=== PATIENT | male | born 1945 | race Caucasian/White ===

== ENCOUNTER 2018-06-06 22:04 | Inpatient (IN) | payer BC, MEDICARE ==
--- NOTE | 2018-06-06 22:39 | ERNOTE ---
GI Bleeding/Rectal Pain ER Date of Service: 06/06/18 Presenting Symptoms: rectal bleeding Time Seen by Provider: 06/06/18 22:24 Source: patient Immunizations: IMMUNIZATION HX Immunizations Up to Date Yes History of Influenza Vaccine Yes Hx Pneumococcal Vaccination Yes Allergies/Adverse Reactions: Allergies No Known Allergies Allergy (Unverified 05/27/18 12:56) Home Medications: HOME MEDICATIONS Enalapril Maleate [Vasotec] 20 mg PO DAILY 02/10/15 [Last Taken Unknown] Lovastatin 10 mg PO HS 02/10/15 [Last Taken Unknown] Metoprolol Tartrate [Lopressor] 25 mg PO BID 02/10/15 [Last Taken Unknown] Warfarin Sodium [Coumadin] 8 mg PO TH 02/10/15 [Last Taken Unknown] Warfarin Sodium [Coumadin] 10 mg PO SUMOTUWEFRSA 02/02/16 [Last Taken Unknown] Gabapentin 300 mg PO HS 02/13/17 [Last Taken Unknown] Narrative: patient c/o several episodes of bloody stool starting this afternnon, had episode of feeling a bit light headed ,pt on warfarin,says it was for an old stroke Date (Duration): 06/06/18 Time (Timing): 22:35 Timing: constant Quality/Severity: Present: other - none Date of Last Bowel Movement: 06/06/18 Nausea/Vomiting: Present: blood, other - melanic stool burgandy color Abdominal Pain: Present: none Rectal Bleeding: Present: other - burgandy color melanic Associated Symptoms: Reports: black stools Prior Treament: Reports: recently seen Review of Systems - Review of Systems Constitutional: Present: no symptoms reported EYE: Present: no symptoms reported ENT: Present: no symptoms reported Respiratory: Present: no symptoms reported Cardiology: Present: no symptoms reported Gastrointestinal/Abdominal: Present: no symptoms reported Genitourinary: Present: no symptoms reported Musculoskeletal: Present: no symptoms reported Skin: Present: no symptoms reported Neurological: Present: weakness - right leg Endocrine: Present: no symptoms reported Hematologic/Lymphatic: Present: no symptoms reported All Other Systems: All systems neg except as marked Medical History (Last Updated 06/06/18 @ 22:16 by Neva Ruvalcaba RN) History of stroke Gastroesophageal reflux Hyperlipidemia Hypertension Surgical History: Surgical History (Last Reviewed 05/27/18 @ 13:09 by Moriah Karimi) S/P skin biopsy Onset Date: ~07/2010 Dr Rutherford- right check History of colonoscopy Onset Date: ~08/21/11 ' [facility]. Cindi- normal, recheck 10 yrs. Family History: Family History (Last Reviewed 06/06/18 @ 22:16 by Neva Ruvalcaba RN) Mother Diabetes Father Alzheimers disease Brother Myocardial infarction, Onset Age: 52 Social History: Preferred Language Beninese Do you have any jew or No cultural preference? Smoking Status Never smoker Have you smoked in the past 12 No months Do you dip or chew tobacco No Alcohol Use occasionally Drug Use none (Last Reviewed 05/27/18 @ 13:09 by Moriah Karimi) No Social History Section defined Physical Exam - Physical Exam General Appearance: Present: wd/wn, alert, no apparent distress Head Exam: Present: normal inspection, no evidence of injury Eye Exam: Normal inspection: bilateral, PERRL: bilateral, EOMI: bilateral Ears, Nose, Throat: Present: normal ENT inspection Neck: Present: normal inspection Respiratory: Present: no respiratory distress Cardiovascular/Chest: Present: irregularly irregular Gastrointestinal/Abdominal: Present: nontender, soft Rectal Exam: Present: nontender, normal rectal tone, black stool, blood-streaked stool Male Genitals Exam: Present: normal genitalia Back Exam: Present: normal inspection Extremity Exam: Present: normal inspection Neurological Exam: Present: alert, oriented, normal mood/affect, no motor/sensory deficits Skin Exam: Present: normal color Progress - Results and Orders Patient's Lab Results:: I have reviewed the patient's lab results. - Vital Signs Patient's Vital Signs:: I have reviewed the patient's vital signs. Vital Signs: Vital Signs 06/06/18 22:10 Temperature 36.1 C Pulse Rate 97 Respiratory Rate 18 Blood Pressure 116/52 O2 Sat by Pulse Oximetry 97 - EKG EKG: atrial fibrillation, other - RVR EKG read: Interp. by me EKG Comments: [id number] not new - Progress/Reassessment Chief Complaint: GI Bleed Progress:: Unchanged Progress Note-Subjective: 06/07/18 01:28 hr a.fib 106 no further bm Plan - Plan Plan: diltiazem drip ,hold warfarin till further notice Departure Clinical Impression: Rectal bleeding, Atrial fibrillation with rapid ventricular response - Departure Disposition: Short Term Hospital Inpatient Condition: Fair
[2018-06-06 22:46] LABS: Hematocrit 39.6 % (42.0-52.0); Hemoglobin 12.6 gm/dL (13.5-18.0); Mean Cell Volume 103.1 fl (78-100); Mean Corpuscular Hemoglobin 32.8 pg (27-31); Mean Corpuscular Hgb Conc 31.8 g/dl (32-36); Mean Platelet Volume 10.3 fl (8-11.3); Neutrophil # 8.7 K/mm3 (1.3-6.0); Neutrophil % 76.9 % (42-75.0); Platelet Count 320 K/mm3 (150-450); Red Blood Count 3.84 M/mm3 (4.7-6.0); Red Cell Distribution Width 12.8 % (11.5-14.0); White Blood Count 11.3 K/mm3 (4.0-10.5)
[2018-06-06] MEDS ORDERED: DILTIAZEM HCL 5 MG/ML VIAL IV ONE (22:46)
[2018-06-06] MEDS ORDERED: DILTIAZEM HCL 125 MG in DEXTROSE 5 % IN WATER 100 ML IV PRN ×2 (22:47)
[2018-06-06 22:58] LABS: Prothrombin Time (Patient) 51.9 Seconds (9.0-11.0)
[2018-06-06 23:15] LABS: Partial Thrombolplastin Time 44.6 Seconds (24-32)
[2018-06-06 23:16] LABS: INR 5.11 INR (0.90-1.10)
[2018-06-06 23:21] LABS: ALT 9 U/L (19-67); AST 20 U/L (0-48); Albumin * 2.5 gm/dl (3.4-5.0); Alkaline Phosphatase * 70 U/L (50-170); Anion Gap 9.8 mmol/L (6.8-13.8); BNP * 1142 pg/mL (5-350); BUN/Creatinine Ratio 47.6 (9.0-21.6); Bilirubin, Total 0.3 mg/dL (0.0-1.1); Blood Urea Nitrogen 59 mg/dL (6-23); Ca. Corrected For Albumin 9.2 mg/dL (8.4-10.2); Calcium * 8.3 mg/dL (7.9-10.9); Carbon Dioxide 28.8 mmol/L (24-32.6); Chloride 106 mmol/L (97-106); Glucose * 171 mg/dL (70-110); Potassium 4.6 mmol/L (3.4-4.6); Sodium 140 mmol/L (132-142); Total Protein 6.5 gm/dL (6.2-8.2)
[2018-06-06 23:23] LABS: Troponin I Less than 0.017 ng/mL (0.00-0.10)
[2018-06-07 01:29] LABS: Urine Bilirubin Negative (NEGATIVE); Urine Blood Negative /ul (NEGATIVE); Urine Ketone Negative (NEGATIVE); Urine Nitrite Negative (NEGATIVE); Urine Protein Negative (NEGATIVE); Urine Urobilinogen Normal (NORMAL); Urine pH 5.5 pH (5.0-7.0)
[2018-06-07 01:40] LABS: Urine Appearance Clear (CLEAR); Urine Bacteria None Seen; Urine Color Yellow; Urine Hyaline Cast TRACE /LPF; Urine RBC None Seen /hpf (0-5); Urine WBC None Seen /hpf (0-5)
[2018-06-07] MEDS ORDERED: CALCIUM CARBONATE 500 MG TAB.CHEW PO PRN (03:42)
[2018-06-07 06:19] LABS: Hematocrit 34.8 % (42.0-52.0); Hemoglobin 11.3 gm/dL (13.5-18.0); Mean Cell Volume 100.9 fl (78-100); Mean Corpuscular Hemoglobin 32.8 pg (27-31); Mean Corpuscular Hgb Conc 32.5 g/dl (32-36); Mean Platelet Volume 10.4 fl (8-11.3); Neutrophil % 73.5 % (42-75.0); Platelet Count 293 K/mm3 (150-450); Red Blood Count 3.45 M/mm3 (4.7-6.0); Red Cell Distribution Width 12.9 % (11.5-14.0); White Blood Count 10.9 K/mm3 (4.0-10.5)
--- NOTE | 2018-06-07 06:54 | HP ---
Chief Complaint - Chief Complaint Date of Service: 06/07/18 Time of Service: 06:54 Chief Complaint: rectal bleeding History of Present Illness: Patient with PMHx of afib on coumadin, HTN, previous CVA presented to the ED after having several bloody bowel movements. He had gone to his granddaughter's birthday libertarian, ate pizza, cake, and ice cream, and came home and started having loose bloody BMs. Had some mild dizziness. He has not had coumadin dose changes lately, and is usually in range, however he did miss his appointment last week. On arrival to the ED, he was in afib with RVR, and was given 20 mg IV cardizem with improvement in his HR. Was on 5 mg/hr cardizem drip for a few hours, and the drip was stopped this morning. Chart review shows he was seen in the [facility] 05/27 for muscular abdominal pain. He took a couple of ibuprofen about every other day since then, and denies using ibuprofen prior to that. His last colonoscopy looks to have been in 2011. He also has been having some heartburn, but is not prescribed a medication for it. Medical History (Last Updated 06/07/18 @ 04:35 by Dariana Manzo RN) Diabetes History of stroke Gastroesophageal reflux Hyperlipidemia Hypertension Surgical History: Surgical History (Last Reviewed 06/07/18 @ 04:35 by Dariana Manzo RN) S/P skin biopsy Onset Date: ~07/2010 Dr Rutherford- right check History of colonoscopy Onset Date: ~08/21/11 '04 [facility]. 13 Cindi- normal, recheck 10 yrs. Family History: Family History (Last Reviewed 06/07/18 @ 04:35 by Dariana Manzo RN) Mother Diabetes Father Alzheimers disease Brother Myocardial infarction, Onset Age: 52 Social History: Patient Lives/Resources Home Utilized Occupation retired Preferred Language Occitan Do you have any mandaen or Yes: [employer] cultural preference? Smoking Status Former smoker Have you smoked in the past 12 No months Do you dip or chew tobacco No Alcohol Use occasionally Drug Use none (Last Reviewed 05/27/18 @ 13:09 by Moriah Karimi) No Social History Section defined Review Of Systems (GEN) - Review of Systems Generalized/Overall Review: Absent: Weakness, Fever Respiratory: Present: Cough - "a little". Absent: Shortness of Breath Cardiac: Absent: Chest Pain, Edema Abdominal: Present: Abdominal Pain - epigastric, Bright blood from rectum. Absent: Vomiting Immunizations: IMMUNIZATION HX Immunizations Up to Date Yes History of Influenza Vaccine Yes Hx Pneumococcal Vaccination Yes Allergies/Adverse Reactions: Allergies Allergy/AdvReac Type Severity Reaction Status Date / Time No Known Allergies Allergy Verified 06/07/18 04:35 Home Medications: HOME MEDICATIONS Enalapril Maleate [Vasotec] 20 mg PO DAILY 02/10/15 [Last Taken 06/06/18 07:30] Lovastatin 10 mg PO HS 02/10/15 [Last Taken 06/06/18 07:30] Metoprolol Tartrate [Lopressor] 25 mg PO BID 02/10/15 [Last Taken 06/06/18 07:30] Warfarin Sodium [Coumadin] 8 mg PO TH 02/10/15 [Last Taken 06/04/18 07:30] Warfarin Sodium [Coumadin] 10 mg PO SUMOTUWEFRSA 02/02/16 [Last Taken 06/06/18 07:30] Gabapentin 300 mg PO HS 02/13/17 [Last Taken 06/06/18 07:30] Exam - Exam Vital Signs: Vital Signs - Last Taken Temp 37 C 06/07/18 06:00 Pulse 87 06/07/18 06:00 Resp 18 06/07/18 06:00 BP 109/71 06/07/18 06:00 Pulse Ox 97 06/07/18 06:00 Constitutional: Present: Alert, Oriented x3, Cooperative, No distress ENT Exam: Present: dry mucous membranes - mildly dry Respiratory: Present: normal breath sounds, no respiratory distress. Absent: No wheezing Cardiovascular/Chest: Present: irregularly irregular - HR 80's Abdomen: Present: Normal bowel sounds, soft, nontender /Rectal: Present: hemorrhoids - mild, Sphincter tone normal Extremity: Absent: lower extremity edema Neurologic: Present: normal mood/affect Eye contact: Present: cooperative, good eye contact Diagnostic Studies: Abnormal Lab Results 06/06/18 06/06/18 06/06/18 Range/Units 22:36 22:40 22:40 WBC 11.3 H (4.0-10.5) K/mm3 RBC 3.84 L (4.7-6.0) M/mm3 Hgb 12.6 L (13.5-18.0) gm/dL Hct 39.6 L (42.0-52.0) % MCV 103.1 H (78-100) fl MCH 32.8 H (27-31) pg MCHC 31.8 L (32-36) g/dl Immature Gran % (Auto) 1.40 H (0.001-0.429) % Immature Gran # (Auto) 0.16 H (0.000-0.0310) K/mm3 Neutrophils % 76.9 H (42-75.0) % Lymphocytes % 14.3 L (20-51) % Monocytes % (0.0-9) % Neutrophils # 8.7 H (1.3-6.0) K/mm3 Monocytes # (0.0-1.0) k/mm3 PT 51.9 H (9.0-11.0) Seconds INR (Anticoag Therapy) 5.11 H* (0.90-1.10) INR PTT (Phil) 44.6 H (24-32) Seconds BUN (6-23) mg/dL BUN/Creatinine Ratio (9.0-21.6) Random Glucose (70-110) mg/dL ALT (19-67) U/L B-Natriuretic Peptide (5-350) pg/mL Albumin (3.4-5.0) gm/dl Stool Occult Blood Positive H 06/06/18 06/07/18 Range/Units 22:40 06:15 WBC 10.9 H (4.0-10.5) K/mm3 RBC 3.45 L (4.7-6.0) M/mm3 Hgb 11.3 L (13.5-18.0) gm/dL Hct 34.8 L (42.0-52.0) % MCV 100.9 H (78-100) fl MCH 32.8 H (27-31) pg MCHC (32-36) g/dl Immature Gran % (Auto) 0.70 H (0.001-0.429) % Immature Gran # (Auto) 0.08 H (0.000-0.0310) K/mm3 Neutrophils % (42-75.0) % Lymphocytes % 15.4 L (20-51) % Monocytes % 9.8 H (0.0-9) % Neutrophils # 8.0 H (1.3-6.0) K/mm3 Monocytes # 1.1 H (0.0-1.0) k/mm3 PT (9.0-11.0) Seconds INR (Anticoag Therapy) (0.90-1.10) INR PTT (Phil) (24-32) Seconds BUN 59 H (6-23) mg/dL BUN/Creatinine Ratio 47.6 H (9.0-21.6) Random Glucose 171 H (70-110) mg/dL ALT 9 L (19-67) U/L B-Natriuretic Peptide 1142 H (5-350) pg/mL Albumin 2.5 L (3.4-5.0) gm/dl Stool Occult Blood Laboratory Results WBC 10.9 K/mm3 (4.0-10.5) H 06/07/18 06:15 RBC 3.45 M/mm3 (4.7-6.0) L 06/07/18 06:15 Hgb 11.3 gm/dL (13.5-18.0) L 06/07/18 06:15 Hct 34.8 % (42.0-52.0) L 06/07/18 06:15 MCV 100.9 fl (78-100) H 06/07/18 06:15 MCH 32.8 pg (27-31) H 06/07/18 06:15 MCHC 32.5 g/dl (32-36) 06/07/18 06:15 RDW 12.9 % (11.5-14.0) 06/07/18 06:15 Plt Count 293 K/mm3 (150-450) 06/07/18 06:15 MPV 10.4 fl (8-11.3) 06/07/18 06:15 Immature Gran % (Auto) 0.70 % (0.001-0.429) H 06/07/18 06:15 Immature Gran # (Auto) 0.08 K/mm3 (0.000-0.0310) H 06/07/18 06:15 Neutrophils % 73.5 % (42-75.0) 06/07/18 06:15 Lymphocytes % 15.4 % (20-51) L 06/07/18 06:15 Monocytes % 9.8 % (0.0-9) H 06/07/18 06:15 Eosinophils % 0.2 % (0.0-3.0) 06/07/18 06:15 Basophils % 0.4 % (0.0-1.0) 06/07/18 06:15 Nucleated RBC % 0.0 k/mm3 (0-1) 06/07/18 06:15 Neutrophils # 8.0 K/mm3 (1.3-6.0) H 06/07/18 06:15 Lymphocytes # 1.67 k/mm3 (1.5-3.5) 06/07/18 06:15 Monocytes # 1.1 k/mm3 (0.0-1.0) H 06/07/18 06:15 Eosinophils # 0.0 k/mm3 (0.0-0.7) 06/07/18 06:15 Absolute Basophils 0.0 k/mm3 (0.0-0.1) 06/07/18 06:15 PT 51.9 Seconds (9.0-11.0) H 06/06/18 22:40 INR (Anticoag Therapy) 5.11 INR (0.90-1.10) H* 06/06/18 22:40 PTT (Phil) 44.6 Seconds (24-32) H 06/06/18 22:40 Sodium 140 mmol/L (132-142) 06/06/18 22:40 Plasma Sodium 141 mmol/L (130-142) 06/06/18 22:40 Potassium 4.6 mmol/L (3.4-4.6) 06/06/18 22:40 Chloride 106 mmol/L (97-106) 06/06/18 22:40 Carbon Dioxide 28.8 mmol/L (24-32.6) 06/06/18 22:40 Anion Gap 9.8 mmol/L (6.8-13.8) 06/06/18 22:40 BUN 59 mg/dL (6-23) H 06/06/18 22:40 Creatinine 1.24 mg/dL (0.4-1.4) 06/06/18 22:40 Est GFR (Non-Af Amer) 61 mL/min (60-130) 06/06/18 22:40 BUN/Creatinine Ratio 47.6 (9.0-21.6) H 06/06/18 22:40 Random Glucose 171 mg/dL (70-110) H 06/06/18 22:40 Calcium 8.3 mg/dL (7.9-10.9) 06/06/18 22:40 Calcium Adj for Albumin 9.2 mg/dL (8.4-10.2) 06/06/18 22:40 Total Bilirubin 0.3 mg/dL (0.0-1.1) 06/06/18 22:40 AST 20 U/L (0-48) 06/06/18 22:40 ALT 9 U/L (19-67) L 06/06/18 22:40 Alkaline Phosphatase 70 U/L (50-170) 06/06/18 22:40 Troponin I Less than 0.017 ng/mL (0.00-0.10) 06/06/18 22:40 B-Natriuretic Peptide 1142 pg/mL (5-350) H 06/06/18 22:40 Total Protein 6.5 gm/dL (6.2-8.2) 06/06/18 22:40 Albumin 2.5 gm/dl (3.4-5.0) L 06/06/18 22:40 Urine Color Yellow 06/07/18 01:25 Urine Appearance Clear (CLEAR) 06/07/18 01:25 Urine pH 5.5 pH (5.0-7.0) 06/07/18 01:25 Ur Specific [place] 1.010 SP.GR. (1.005-1.030) 06/07/18 01:25 Urine Protein Negative mg/dL (NEGATIVE) 06/07/18 01:25 Urine Glucose (UA) Negative mg/dL (NEGATIVE) 06/07/18 01:25 Urine Ketones Negative mg/dL (NEGATIVE) 06/07/18 01:25 Urine Blood Negative /ul (NEGATIVE) 06/07/18 01:25 Urine Nitrate Negative (NEGATIVE) 06/07/18 01:25 Urine Bilirubin Negative mg/dl (NEGATIVE) 06/07/18 01:25 Urine Urobilinogen Normal EU/dl (NORMAL) 06/07/18 01:25 Ur Leukocyte Esterase Negative /ul (NEGATIVE) 06/07/18 01:25 Urine RBC None seen /hpf (0-5) 06/07/18 01:25 Urine WBC None seen /hpf (0-5) 06/07/18 01:25 Ur Epithelial Cells Trace /hpf (0-5) 06/07/18 01:25 Urine Bacteria None seen (NONE) 06/07/18 01:25 Hyaline Casts Trace /LPF (NONE) 06/07/18 01:25 Urine Culture Comments No culture indicated 06/07/18 01:25 Stool Occult Blood Positive H 06/06/18 22:36 Blood Type A Positive 06/06/18 22:40 Antibody Screen Negative 06/06/18 22:40 Assessment/Plan - Assessment/Plan (1) GI bleed Assessment: Has been passing BRBPR and having melanotic stools since yesterday afternoon. Hgb initially 12.6, and 11.3 today. Has not had further stools this shift. Started po protonix this morning. HR and BP appropriate. CBC pending for the morning. Clear liquid diet. May have been secondary to ibuprofen use, however he only reports mild use. Holding warfarin, recheck INR tomorrow. No significant hemorrhoids on exam. No indication for emergent colonoscopy, but would recommend he have one soon. Problem: Acute (2) Atrial fibrillation with rapid ventricular response Assessment: Resolved after 20 mg IV cardizem, and 5 mg cardizem drip for approximately 7 hours. Continue home 25 mg metoprolol bid. Hold warfarin, as his INR is 5.11. Problem: Resolved (3) Epigastric pain Assessment: Started protonix. There is an abnormality on his CT scan in his gallbladder, and will obtain a GB US. Problem: Acute (4) Elevated INR Assessment: Holding warfarin, recheck tomorrow. May have been secondary to ibuprofen use. No signs of infection, and he has not had medication changes lately. Problem: Acute
[2018-06-07] MEDS: ENALAPRIL MALEATE 20 MG TABLET PO SCH ×2 (07:17→08:17)
[2018-06-07] MEDS: METOPROLOL TARTRATE 25 MG TABLET PO SCH ×3 (07:17→20:48)
[2018-06-07] MEDS: PANTOPRAZOLE SODIUM 40 MG TABLET.EC PO SCH (08:17)
[2018-06-08 06:04] LABS: Hematocrit 33.6 % (42.0-52.0); Hemoglobin 11.1 gm/dL (13.5-18.0); Mean Cell Volume 101.8 fl (78-100); Mean Corpuscular Hemoglobin 33.6 pg (27-31); Mean Platelet Volume 10.3 fl (8-11.3); Neutrophil # 6.4 K/mm3 (1.3-6.0); Platelet Count 290 K/mm3 (150-450); Red Cell Distribution Width 12.9 % (11.5-14.0); White Blood Count 9.5 K/mm3 (4.0-10.5)
[2018-06-08] MEDS: PANTOPRAZOLE SODIUM 40 MG TABLET.EC PO SCH (08:12)
[2018-06-08] MEDS: METOPROLOL TARTRATE 25 MG TABLET PO SCH (08:12)
[2018-06-08] MEDS: ENALAPRIL MALEATE 20 MG TABLET PO SCH (08:15)
[2018-06-08 08:21] LABS: Prothrombin Time (Patient) 27.1 Seconds (9.0-11.0)
[2018-06-08 08:22] LABS: INR 2.68 INR (0.90-1.10)
--- NOTE | 2018-06-08 08:24 | PN ---
Progess Note - Interim Date: 06/08/18 Time: 08:21 Narrative: 06/08/18 08:21 Patient has not had further bloody bowel movements. CBC and INR pending. Dr. Puente was consulted regarding his abnormal GB findings on imaging. US showed gallstones and irregular gallbladder wall thickening. HIDA scan pending. No new concerns from patient.
--- NOTE | 2018-06-08 12:00 | DS ---
(1) GI bleed Problem: Acute (2) Atrial fibrillation with rapid ventricular response Problem: Resolved (3) Epigastric pain Problem: Chronic (4) Elevated INR Problem: Resolved Description of Stay: Patient with PMHx of Afib on warfarin presented to the ED after having several bloody bowel movements. His initial Hgb was 12.3, and his INR was 5.11. He was also in afib with RVR. He also complained of some chronic epigastric pain, and was concerned about his gallbladder. He was given 20 mg IV diltiazem and started on a 5 mg diltiazem drip, which he was on for approximately 7 hours. He was transitioned back to his home dose of 25 mg metoprolol bid, and his rate remained controlled throughout the rest of his stay. His warfarin was held, and he had no further bloody bowel movements during admission. He was started on protonix. His hemoglobin remained greater than 11.2. His INR decreased to 2.68, and his previous dose of warfarin was resumed. He had not had dose adjustments lately, and no recent infections. He did report some mild use of ibuprofen recently for abdominal wall pain, and was advised to avoid ibuprofen in the future. Most recent colonoscopy was 2011, and he did not have diverticulosis at that time. A CT in the ED and subsequent US showed gallstones and irregular gallbladder wall thickening. HIDA scan was negative. No abnormalities with his AST, ALT, or alk phos. His case was discussed with Dr. Puente, and it was felt he did not have an acute gallbladder. Procedures Performed: none Results and Findings: Lab Pending Results 06/06/18 22:36: Stool Occult Blood Positive H 06/06/18 22:40: WBC 11.3 H, RBC 3.84 L, Hgb 12.6 L, Hct 39.6 L, MCV 103.1 H, MCH 32.8 H, MCHC 31.8 L, RDW 12.8, Plt Count 320, MPV 10.3, Immature Gran % (Auto) 1.40 H, Immature Gran # (Auto) 0.16 H, Neutrophils % 76.9 H, Lymphocytes % 14.3 L, Monocytes % 6.8, Eosinophils % 0.2, Basophils % 0.4, Nucleated RBC % 0.0, Neutrophils # 8.7 H, Lymphocytes # 1.61, Monocytes # 0.8, Eosinophils # 0.0, Absolute Basophils 0.1 06/06/18 22:40: PT 51.9 H, INR (Anticoag Therapy) 5.11 H*, PTT (Phil) 44.6 H 06/06/18 22:40: Sodium 140, Plasma Sodium 141, Potassium 4.6, Chloride 106, Carbon Dioxide 28.8, Anion Gap 9.8, BUN 59 H, Creatinine 1.24, Est GFR (Non-Af Amer) 61, BUN/Creatinine Ratio 47.6 H, Random Glucose 171 H, Calcium 8.3, Calcium Adj for Albumin 9.2, Total Bilirubin 0.3, AST 20, ALT 9 L, Alkaline Phosphatase 70, Troponin I Less than 0.017, B-Natriuretic Peptide 1142 H, Total Protein 6.5, Albumin 2.5 L 06/06/18 22:40: Blood Type A Positive, Antibody Screen Negative 06/07/18 01:25: Urine Color Yellow, Urine Appearance Clear, Urine pH 5.5, Ur Specific [place] 1.010, Urine Protein Negative, Urine Glucose (UA) Negative, Urine Ketones Negative, Urine Blood Negative, Urine Nitrate Negative, Urine Bilirubin Negative, Urine Urobilinogen Normal, Ur Leukocyte Esterase Negative, Urine RBC None seen, Urine WBC None seen, Ur Epithelial Cells Trace, Urine Bacteria None seen, Hyaline Casts Trace, Urine Culture Comments No culture indicated 06/07/18 06:15: WBC 10.9 H, RBC 3.45 L, Hgb 11.3 L, Hct 34.8 L, MCV 100.9 H, MCH 32.8 H, MCHC 32.5, RDW 12.9, Plt Count 293, MPV 10.4, Immature Gran % (Auto) 0.70 H, Immature Gran # (Auto) 0.08 H, Neutrophils % 73.5, Lymphocytes % 15.4 L, Monocytes % 9.8 H, Eosinophils % 0.2, Basophils % 0.4, Nucleated RBC % 0.0, Neutrophils # 8.0 H, Lymphocytes # 1.67, Monocytes # 1.1 H, Eosinophils # 0.0, Absolute Basophils 0.0 06/08/18 06:00: WBC 9.5, RBC 3.30 L, Hgb 11.1 L, Hct 33.6 L, MCV 101.8 H, MCH 33.6 H, MCHC 33.0, RDW 12.9, Plt Count 290, MPV 10.3, Immature Gran % (Auto) 0.50 H, Immature Gran # (Auto) 0.05 H, Neutrophils % 67.0, Lymphocytes % 21.2, Monocytes % 9.9 H, Eosinophils % 0.8, Basophils % 0.6, Nucleated RBC % 0.0, Neutrophils # 6.4 H, Lymphocytes # 2.02, Monocytes # 0.9, Eosinophils # 0.1, Absolute Basophils 0.1 06/08/18 08:05: PT 27.1 H, INR (Anticoag Therapy) 2.68 H Discharge Location: Home Disposition: Home self-care Condition: Good Discharge Activity: Activity as tolerated Discharge Diet: Low fat/chol Additional Patient Instructions (free text): -Please make TCM appointment unless penitentiary discharge. Thank you! Andreea @ [phone]. Complete Home Medications List: Complete Home Medication List: Enalapril Maleate [Vasotec] 20 mg PO DAILY 02/10/15 Lovastatin 10 mg PO HS 02/10/15 Metoprolol Tartrate [Lopressor] 25 mg PO BID 02/10/15 Warfarin Sodium [Coumadin] 8 mg PO 02/10/15 Warfarin Sodium [Coumadin] 10 mg PO SUMOTUWEFRSA 02/02/16 Gabapentin 300 mg PO HS 02/13/17 Pantoprazole Sodium [Protonix] 40 mg PO DAILY@0700 #60 tablet. 06/08/18
[2018-06-08 13:24] VITALS: BP 95/55
--- NOTE | 2018-06-08 15:54 | CONS ---
HPI - General Date of Service: 06/08/18 Source: patient, RN/MD, RN notes reviewed, old records Exam Limitations: no limitations - History of Present Illness Initial Comments: He went to a birthday green party on Friday. He had 3 pieces of pizza, ice cream and cake. He felt his stomach churning and thought he better go home. When he got home he "had an accident" very urgent bowel movement with black liquid and blood. He was evaluated in the emergency room. He was found to have an elevated INR of 5.11 and was in atrial fibrillation with rapid ventricular response. He was admitted. He had a normal colonoscopy in 2011 (there were no diverticula noted). He is on Coumadin for chronic atrial fibrillation--- he missed his last INR last week. He has not really moved his bowels since admission. His hemoglobin started at 12.6 and was 11.1 today. His INR has come down to 2.68. He has had response of his heart rate, he has been hemodynamically stable, he currently denies discomfort. CT scan in the emergency room revealed a thickened gallbladder wall and a gallstone. An ultrasound again revealed a thickened gallbladder wall and stone. There was concern for possible cholecystitis due to a positive Hartley sign. His liver functions however are normal. HB scan today reveals visualization of the gallbladder which rules out acute cholecystitis. He has no right upper quadrant or abdominal pain currently. Allergies/Adverse Reactions: Allergies No Known Allergies Allergy (Verified 06/07/18 04:35) Home Medications: Home Medications Medication Instructions Recorded Last Taken Enalapril Maleate [Vasotec] 20 mg PO DAILY 02/10/15 06/06/18 07:30 Lovastatin 10 mg PO HS 02/10/15 06/06/18 07:30 Metoprolol Tartrate [Lopressor] 25 mg PO BID 02/10/15 06/06/18 07:30 Warfarin Sodium [Coumadin] 8 mg PO TH 02/10/15 06/04/18 07:30 Warfarin Sodium [Coumadin] 10 mg PO SUMOTUWEFRSA 02/02/16 06/06/18 07:30 Gabapentin 300 mg PO HS 02/13/17 06/06/18 07:30 Pantoprazole Sodium [Protonix] 40 mg PO DAILY@0700 #60 tablet. 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 Absent: Chest Pain Abdominal: Present: Other - He could feel his abdomen rolling on Friday. Currently he has no pain Genitourinary: Present: No Symptoms Reported Musculoskeletal: Present: No Symptoms Reported Neurological: Present: No Symptoms Reported Skin: Present: No Symptoms Reported Physical Examination - Exam Vital Signs: Vital Signs - Last Taken Temp 36.4 C 06/08/18 11:30 Pulse 80 06/08/18 11:30 Resp 16 06/08/18 11:30 BP 114/62 06/08/18 11:30 Pulse Ox 95 06/08/18 11:30 O2 Oxygen Delivery Method Room Air Constitutional: Present: Alert, Oriented x3, Cooperative, Well nourished, No distress ENT Exam: Present: normal ENT inspection Eye Exam: bilateral eye: normal inspection Neck: Present: supple, normal inspection Respiratory: Present: no respiratory distress Cardiovascular/Chest: Present: irregularly irregular Abdomen: Present: other - Very protuberant abdomen. Very tympanitic over the stomach. Soft and generally nontender with no rebound /Rectal: Present: Exam deferred Extremity: Present: normal range of motion Skin Exam: Present: warm/dry Neurologic: Present: medical office specialist II-XII nml as tested, no motor/sensory deficits Appearance: Present: appropriate appearance Eye contact: Present: cooperative, good eye contact, normal speech Thoughts: Present: normal thought pattern - Results and Findings: Lab/Microbiology results last 24 hrs: Abnormal/Pending Laboratory Last 24 HRS 06/08/18 06/08/18 08:05 06:00 RBC 3.30 L Hgb 11.1 L Hct 33.6 L MCV 101.8 H MCH 33.6 H Immature Gran % (Auto) 0.50 H Immature Gran # (Auto) 0.05 H Monocytes % 9.9 H Neutrophils # 6.4 H PT 27.1 H INR (Anticoag Therapy) 2.68 H - Assessments/Findings (1) GI bleed Diagnosis(s): His hemoglobin has only decreased 1 g and he has remained hemodynamically stable. Clinically the bleeding has stopped He did not have diverticulosis on his colonoscopy, although he could bleed with a single diverticulum and an elevated INR. He does have gastric distention on his CT scan and clinically, with a history of heartburn and recent ibuprofen use. He could have had bleeding from gastritis given an elevated INR. He does have cholelithiasis and a thickened gallbladder wall, however he does not have acute cholecystitis based on the HB scan. This could be addressed as an outpatient. Currently he would be stable for discharge home with follow-up as an outpatient. Discussed the case with Dr. Manley. Problem: Acute
== END 2018-06-08 13:33 | disposition home or self-care (01) | DRG 379 ==
LOC: ER 22:04 → SCU 06-07 01:56 → MS 06-07 08:07
PROVIDERS: ADMIT Family Medicine; ATTEND Family Medicine
DX: K21.9 Gastro-esophageal reflux disease without esophagitis; R10.13 Epigastric pain; E78.5 Hyperlipidemia, unspecified; I48.91 Unspecified atrial fibrillation; E11.9 Type 2 diabetes mellitus without complications; K80.80 Other cholelithiasis without obstruction; R79.1 Abnormal coagulation profile; Z87.891 Personal history of nicotine dependence; I10 Essential (primary) hypertension; K92.2 Gastrointestinal hemorrhage, unspecified; Z86.73 Personal history of transient ischemic attack (TIA), and cerebral infarction without residual deficits; Z79.01 Long term (current) use of anticoagulants
CPT/HCPCS: 36415; 71010; 71045; 74177; 76705; 78226; 80053; 81001; 82272; 83519; 83880; 84484; 85025; 85610; 85730; 86850; 86900; 93005; 96365; 96366; 96375; 99285; A9537

== ENCOUNTER 2018-09-06 15:21 | Observation (INO) ==
[2018-09-06] MEDS ORDERED: DILTIAZEM HCL 5 MG/ML VIAL IV ONE (15:29)
[2018-09-06 16:00] LABS: Hematocrit 42.6 % (42.0-52.0); Mean Cell Volume 86.1 fl (78-100); Mean Corpuscular Hemoglobin 24.2 pg (27-31); Mean Corpuscular Hgb Conc 28.2 g/dl (32-36); Mean Platelet Volume 10.2 fl (8-11.3); Neutrophil # 4.6 K/mm3 (1.3-6.0); Platelet Count 374 K/mm3 (150-450); Red Blood Count 4.95 M/mm3 (4.7-6.0); Red Cell Distribution Width 18.8 % (11.5-14.0); White Blood Count 6.9 K/mm3 (4.0-10.5)
[2018-09-06] MEDS ORDERED: ALBUTEROL SULFATE/IPRATROPIUM 3 ML NEBU IH ONE (16:05)
[2018-09-06 16:14] LABS: Prothrombin Time (Patient) 35.4 Seconds (9.1-10.7)
[2018-09-06 16:16] LABS: INR 3.76 INR (0.92-1.08); Partial Thrombolplastin Time 42.2 Seconds (24-32)
[2018-09-06 16:21] LABS: ALT 12 U/L (19-67); AST 41 U/L (0-48); Albumin * 3.2 gm/dl (3.4-5.0); Alkaline Phosphatase * 117 U/L (50-170); Anion Gap 20.8 mmol/L (6.8-13.8); BUN/Creatinine Ratio 10.2 (9.0-21.6); Bilirubin, Total 0.5 mg/dL (0.0-1.1); Blood Urea Nitrogen 13 mg/dL (6-23); Ca. Corrected For Albumin 8.7 mg/dL (8.4-10.2); Calcium * 8.4 mg/dL (7.9-10.9); Chloride 103 mmol/L (97-106); Glucose * 119 mg/dL (70-110); Magnesium 1.8 mg/dL (1.2-2.8); Potassium 4.8 mmol/L (3.4-4.6); Sodium 139 mmol/L (132-142); Total Protein 7.9 gm/dL (6.2-8.2); Troponin I Less than 0.017 ng/mL (0.00-0.10)
[2018-09-06] MEDS ORDERED: NORMAL SALINE 1,000 ML IV ONE ×2 (16:37→17:10)
--- NOTE | 2018-09-06 17:46 | ERNOTE ---
Syncope ER HPI Date of Service: 09/06/18 Stated Complaint: Syncopal episode; passed out Time Seen by Provider: 09/06/18 15:21 Source: patient Exam Limitations: no limitations Immunizations: IMMUNIZATION HX Immunizations Up to Date Yes History of Influenza Vaccine Yes Hx Pneumococcal Vaccination Yes Allergies/Adverse Reactions: Allergies No Known Allergies Allergy (Verified 06/30/18 13:47) Home Medications: HOME MEDICATIONS Enalapril Maleate [Vasotec] 20 mg PO DAILY 02/10/15 [Last Taken 07/19/18] Lovastatin 10 mg PO HS 02/10/15 [Last Taken 07/19/18] Metoprolol Tartrate [Lopressor] 25 mg PO BID 02/10/15 [Last Taken 07/19/18] Warfarin Sodium [Coumadin] 4 mg PO MO 02/10/15 [Last Taken 07/16/18] Pantoprazole Sodium [Protonix] 40 mg PO DAILY@0700 #60 tablet. 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 There are no associated symptoms. The patient denies pain. There are no alleviating factors. There are no aggravating factors. Previous treatments have included: 500ml bolus of NS by EMS. The past medical history includes: AFib with RVR, COPD, CHF, HTN, HLD, GERD, CVA and DM. The social history is former smoker with occasional alcohol use. The patient has had no known ill contacts. Patient was shopping at [employer] when he had a witnessed presumed syncopal episode. Report from EMS of new onset AFib with RVR, discussed with patient and unsure if he has a history of AFib. Patient medication history as well as son shows history with Coumadin use. Patient denies recent illness and states he was feeling fine prior to incident. Patient denies striking head but unsure. Review of Systems - Review of Systems Constitutional: Present: no symptoms reported. Absent: recent illness, fever, chills, fatigue EYE: Present: no symptoms reported. Absent: vision changes ENT: Present: no symptoms reported. Absent: ear pain, nasal drainage, sore throat Respiratory: Present: shortness of breath - pt denies change from baseline of COPD, cough - pt denies change from baseline of COPD Cardiology: Present: no symptoms reported. Absent: chest pain, palpitations, edema Gastrointestinal/Abdominal: Present: no symptoms reported. Absent: nausea, vomiting, diarrhea, abdominal pain Genitourinary: Present: no symptoms reported. Absent: frequency, dysuria Musculoskeletal: Present: no symptoms reported. Absent: back pain, neck pain Skin: Present: no symptoms reported. Absent: rash Neurological: Present: other - syncope. Absent: headache, dizziness/light- headedness Endocrine: Present: no symptoms reported Hematologic/Lymphatic: Present: easy bruising Psych: Present: no symptoms reported All Other Systems: All systems neg except as marked Medical History (Last Reviewed 09/06/18 @ 17:38 by SULAIMAN Brizuela) Diabetes type 2 GI bleed Onset Date: ~05/2018 History of stroke Onset Date: ~2007 Lives alone with help available Non-tobacco user Uses alcohol occasionally Gastroesophageal reflux Hyperlipidemia Hypertension Surgical History: Surgical History (Last Reviewed 09/06/18 @ 17:39 by SULAIMAN Brizuela) History of colonoscopy Onset Date: 08/21/11 04/04/04 Harley-normal. 08/21/11 Cindi- normal, recheck 10 yrs. History of esophagogastroduodenoscopy (EGD) Onset Date: 07/20/18 07/20/18 Bagan-clotest negative. 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 S/P skin biopsy Onset Date: ~07/2010 Dr Rutherford- right check history of finger surgery Onset Date: 09/18/02 Mary Jane-amputation revision w/lateral flap advancement left little finger, I&D open fracture. Family History: Family History (Last Reviewed 09/06/18 @ 17:39 by SULAIMAN Brizuela) Mother , age 92-old age Diabetes Dementia Father , age 80-Alzheimers Alzheimers disease Brother , age 52-[place] Myocardial infarction, Onset Age: 52 Sister Alive and well Daughter Alive and well Son Alive and well Social History: Preferred Language Kinyarwanda Do you have any worship or No cultural preference? Smoking Status Former smoker Alcohol Use occasionally Drug Use none (Last Updated 06/30/18 @ 14:39 by Ayanna Puente MD) No Social History Section defined Physical Exam - Physical Exam General Appearance: Present: wd/wn, alert, no apparent distress, other - confused to events Head Exam: Present: normal inspection, no evidence of injury, no tenderness w palpation Eye Exam: Normal inspection: bilateral, PERRL: bilateral, EOMI: bilateral Ears, Nose, Throat: Present: normal ENT inspection, dry mucous membranes Neck: Present: normal inspection, nontender, full range of motion Respiratory: Present: no respiratory distress, accessory muscle use - purse lip breathing, resting comfortable in semi-fowlers position, decreased breath sounds, wheezing Cardiovascular/Chest: Present: tachycardia, irregularly irregular Gastrointestinal/Abdominal: Present: normal bowel sounds, nontender, nondistended, soft, no organomegaly Extremity Exam: Present: no edema Neurological Exam: Present: alert, oriented, normal mood/affect, no motor/sensory deficits, ict programmer II-XII nml as tested, normal cerebellar test Skin Exam: Present: normal color, warm/dry Progress - Date and Time Seen: Date and Time: 09/06/18 17:44 Discussed care and results with . Will admit for observation due to syncope as well as lactic acidosis of unknown origin. - Results and Orders Patient's Lab Results:: I have reviewed the patient's lab results. - Vital Signs Patient's Vital Signs:: I have reviewed the patient's vital signs. Vital Signs: Vital Signs 09/06/18 15:33 09/06/18 15:34 09/06/18 16:36 Temperature 36.2 C Pulse Rate 120 H 120 H 84 Respiratory Rate 18 20 Blood Pressure 126/77 O2 Sat by Pulse Oximetry 98 - EKG EKG #1 EKG: atrial fibrillation - rate 120 EKG read: Reviewed by me - X-Ray X-Ray #1 X-Ray: chest Interpretation: Reviewed by me X-ray Comments: X-RAY REPORT ~[id number] RAD/Chest Single View *~ Exam Date: 09/06/2018 16:17 Ordering Physician: Phuong Cochran GAS PROVER Indication: CHEST PAIN syncopal episode. Comparison: June 25, 2018 Technique: Chest Single View * Findings: Stable granulomatous change. There is no pleural effusion or pneumothorax. Cardiac silhouette now appears enlarged however this may be due to the degree of magnification on a single AP view. If concern persists for cardiomegaly truly, recommend PA and lateral chest x-ray. There is basilar atelectasis bilaterally. The osseous structures are within normal limits for age. IMPRESSION: 1. Cardiomegaly which appears new from prior exam however this may be due to a degree of magnification given AP technique. If concern persists recommend PA and lateral chest x-ray. Electronically signed by Inocencio Lackey M.D.. - CT/Ultrasound CT/Ultrasound Narrative: X-RAY REPORT ~[id number] CT/CT Head W/O *~ Exam Date: 09/06/2018 16:16 Ordering Physician: Phuong Cochran GAS PROVER Indication: syncope syncopal episode Comparison: None Technique: CT Head W/O * Individualized dose optimization technique was used for the performed procedure including automated exposure control, adjustment of the mA and/or kV according to patient size and/or the iterative reconstruction technique. Findings: There is no acute intracranial hemorrhage, midline shift or mass effect detected. No hydrocephalus. Cisterns are unremarkable. There is atrophy. There is chronic microvascular ischemic disease change of the white matter. Calvarium is intact. There is pansinus disease.. Mastoid air cells are well pneumatized. Impression: No acute intracranial process detected. Electronically signed by Inocencio Lackey M.D.. - Progress/Reassessment Chief Complaint: Syncopal Episode Departure Clinical Impression: Lactic acidosis, Syncope and collapse Afib Qualifiers: Atrial fibrillation type: chronic Qualified Code(s): I48.2 - Chronic atrial fibrillation COPD (chronic obstructive pulmonary disease) Qualifiers: COPD type: unspecified COPD Qualified Code(s): J44.9 - Chronic obstructive pulmonary disease, unspecified - Departure Disposition: Still a patient Condition: Fair
[2018-09-06] MEDS: NORMAL SALINE 1,000 ML IV PRN (18:32)
--- NOTE | 2018-09-06 19:59 | HP ---
Chief Complaint - Chief Complaint Date of Service: 09/06/18 Time of Service: 19:24 Chief Complaint: syncopal episode History of Present Illness: Patient with past medical history of COPD, A. fib on Coumadin was at [facility] today and passed out. Witnesses state he went down somewhat gently and did not hit his head. He reports having some shortness of breath with exertion lately, but no acute illnesses. Denies fevers. The only medication changes lately were 3 different inhalers for COPD. Denies chest pain, denies seizure history. He states he has been having some diarrhea about every other day. He states he had 2 or 3 alcoholic drinks earlier today. In the ER, he had some significant lab abnormalities, namely a lactate of 7.9. pH was 7.28, pO2 of 53 and pCO2 of 32. His blood pressure is not decreased, and the source of his lactate is not yet known. No elevated WBC. Medical History (Last Reviewed 09/06/18 @ 18:59 by Nivia Garcia RN) Diabetes type 2 GI bleed Onset Date: ~05/2018 History of stroke Onset Date: ~2007 Lives alone with help available Non-tobacco user Uses alcohol occasionally Gastroesophageal reflux Hyperlipidemia Hypertension Surgical History: Surgical History (Last Reviewed 09/06/18 @ 18:59 by Nivia Garcia RN) History of colonoscopy Onset Date: 08/21/11 04/04/04 Harley-normal. 08/21/11 Cindi- normal, recheck 10 yrs. History of esophagogastroduodenoscopy (EGD) Onset Date: 07/20/18 07/20/18 [place]-clotest negative. 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 S/P skin biopsy Onset Date: ~07/2010 Dr Rutherford- right check history of finger surgery Onset Date: 09/18/02 [place]-amputation revision w/lateral flap advancement left little finger, I&D open fracture. Family History: Family History (Last Reviewed 09/06/18 @ 18:59 by Nivia Garcia RN) Mother , age 92-old age Diabetes Dementia Father , age 80-Alzheimers Alzheimers disease Brother , age 52-ND Myocardial infarction, Onset Age: 52 Sister Alive and well Daughter Alive and well Son Alive and well Social History: Patient Lives/Resources Home Utilized Occupation Retired Preferred Language Slovenian Do you have any church or Yes[place] [facility] [place] preference? Smoking Status Former smoker Have you smoked in the past 12 No months Do you dip or chew tobacco No Alcohol Use occasionally Drug Use none (Last Updated 06/30/18 @ 14:39 by Ayanna Puente MD) No Social History Section defined Review Of Systems (GEN) - Review of Systems Generalized/Overall Review: Absent: Fever Respiratory: Present: Shortness of Breath - with exertion. Absent: Cough Cardiac: Present: Syncope. Absent: Chest Pain, Edema Abdominal: Present: Diarrhea - every other day. Absent: Vomiting Genitourinary: Absent: Dysuria Skin: Present: No Symptoms Reported Immunizations: IMMUNIZATION HX Immunizations Up to Date Yes History of Influenza Vaccine Yes Hx Pneumococcal Vaccination Yes Allergies/Adverse Reactions: Allergies Allergy/AdvReac Type Severity Reaction Status Date / Time No Known Allergies Allergy Verified 06/30/18 13:47 Home Medications: HOME MEDICATIONS Enalapril Maleate [Vasotec] 20 mg PO DAILY 02/10/15 [Last Taken 07/19/18] Lovastatin 10 mg PO HS 02/10/15 [Last Taken 07/19/18] Metoprolol Tartrate [Lopressor] 25 mg PO BID 02/10/15 [Last Taken 07/19/18] Warfarin Sodium [Coumadin] 4 mg PO MO 02/10/15 [Last Taken 07/16/18] Pantoprazole Sodium [Protonix] 40 mg PO DAILY@0700 #60 tablet. 06/08/18 [Last Taken 07/19/18] warfarin 4 mg tablet 6 mg PO SUTUWETHFRSA tab 06/30/18 [Last Taken 07/19/18] Loratadine 10 mg PO DAILY 08/19/18 [Last Taken Unknown] Exam - Exam Vital Signs: Vital Signs - Last Taken Temp 36.4 C 09/06/18 18:39 Pulse 104 H 09/06/18 18:39 Resp 18 09/06/18 18:39 BP 133/80 09/06/18 18:39 Pulse Ox 100 09/06/18 18:39 Constitutional: Present: Alert, Oriented x3, Cooperative, No distress Respiratory: Present: no respiratory distress, decreased breath sounds, No wheezing Cardiovascular/Chest: Present: regular rate, rhythm Abdomen: Present: Normal bowel sounds, soft, nontender Extremity: Absent: lower extremity edema Neurologic: Present: normal mood/affect Diagnostic Studies: Abnormal Lab Results 09/06/18 09/06/18 09/06/18 Range/Units 15:47 15:52 15:52 Hgb 12.0 L (13.5-18.0) gm/dL MCH 24.2 L (27-31) pg MCHC 28.2 L (32-36) g/dl RDW 18.8 H (11.5-14.0) % Immature Gran % (Auto) 0.70 H (0.001-0.429) % Immature Gran # (Auto) 0.05 H (0.000-0.0310) K/mm3 Monocytes % 9.7 H (0.0-9) % PT 35.4 H (9.1-10.7) Seconds INR (Anticoag Therapy) 3.76 H (0.92-1.08) INR PTT (Phil) 42.2 H (24-32) Seconds D-Dimer (0.19-0.49) ug/mL pCO2 32.3 L (35.0-48.0) mmHg pO2 53.5 L (83.0-108.0) mmHg HCO3 14.7 L (21.0-28.0) mmol/L Total CO2 15.7 L (19.0-24.0) mmol/L Base Excess -10.9 L (-2.0-3.0) mmol/L ABG pH 7.28 L (7.35-7.45) ABG O2 Sat (Measured) 84.0 L (94.0-98.0) % Potassium (3.4-4.6) mmol/L Carbon Dioxide (24-32.6) mmol/L Anion Gap (6.8-13.8) mmol/L Est GFR (Non-Af Amer) (60-130) mL/min Random Glucose (70-110) mg/dL Lactic Acid, Venous (0.4-2.0) mmol/L ALT (19-67) U/L B-Natriuretic Peptide (5-350) pg/mL Albumin (3.4-5.0) gm/dl 09/06/18 09/06/18 09/06/18 Range/Units 15:52 15:52 15:52 Hgb (13.5-18.0) gm/dL MCH (27-31) pg MCHC (32-36) g/dl RDW (11.5-14.0) % Immature Gran % (Auto) (0.001-0.429) % Immature Gran # (Auto) (0.000-0.0310) K/mm3 Monocytes % (0.0-9) % PT (9.1-10.7) Seconds INR (Anticoag Therapy) (0.92-1.08) INR PTT (Phil) (24-32) Seconds D-Dimer 0.51 H (0.19-0.49) ug/mL pCO2 (35.0-48.0) mmHg pO2 (83.0-108.0) mmHg HCO3 (21.0-28.0) mmol/L Total CO2 (19.0-24.0) mmol/L Base Excess (-2.0-3.0) mmol/L ABG pH (7.35-7.45) ABG O2 Sat (Measured) (94.0-98.0) % Potassium 4.8 H (3.4-4.6) mmol/L Carbon Dioxide 20.0 L (24-32.6) mmol/L Anion Gap 20.8 H (6.8-13.8) mmol/L Est GFR (Non-Af Amer) 59 L (60-130) mL/min Random Glucose 119 H (70-110) mg/dL Lactic Acid, Venous (0.4-2.0) mmol/L ALT 12 L (19-67) U/L B-Natriuretic Peptide 1284 H (5-350) pg/mL Albumin 3.2 L (3.4-5.0) gm/dl 09/06/18 Range/Units 15:52 Hgb (13.5-18.0) gm/dL MCH (27-31) pg MCHC (32-36) g/dl RDW (11.5-14.0) % Immature Gran % (Auto) (0.001-0.429) % Immature Gran # (Auto) (0.000-0.0310) K/mm3 Monocytes % (0.0-9) % PT (9.1-10.7) Seconds INR (Anticoag Therapy) (0.92-1.08) INR PTT (Phil) (24-32) Seconds D-Dimer (0.19-0.49) ug/mL pCO2 (35.0-48.0) mmHg pO2 (83.0-108.0) mmHg HCO3 (21.0-28.0) mmol/L Total CO2 (19.0-24.0) mmol/L Base Excess (-2.0-3.0) mmol/L ABG pH (7.35-7.45) ABG O2 Sat (Measured) (94.0-98.0) % Potassium (3.4-4.6) mmol/L Carbon Dioxide (24-32.6) mmol/L Anion Gap (6.8-13.8) mmol/L Est GFR (Non-Af Amer) (60-130) mL/min Random Glucose (70-110) mg/dL Lactic Acid, Venous 7.9 H* (0.4-2.0) mmol/L ALT (19-67) U/L B-Natriuretic Peptide (5-350) pg/mL Albumin (3.4-5.0) gm/dl Laboratory Results WBC 6.9 K/mm3 (4.0-10.5) 09/06/18 15:52 RBC 4.95 M/mm3 (4.7-6.0) 09/06/18 15:52 Hgb 12.0 gm/dL (13.5-18.0) L 09/06/18 15:52 Hct 42.6 % (42.0-52.0) 09/06/18 15:52 MCV 86.1 fl (78-100) 09/06/18 15:52 MCH 24.2 pg (27-31) L 09/06/18 15:52 MCHC 28.2 g/dl (32-36) L 09/06/18 15:52 RDW 18.8 % (11.5-14.0) H 09/06/18 15:52 Plt Count 374 K/mm3 (150-450) 09/06/18 15:52 MPV 10.2 fl (8-11.3) 09/06/18 15:52 Immature Gran % (Auto) 0.70 % (0.001-0.429) H 09/06/18 15:52 Immature Gran # (Auto) 0.05 K/mm3 (0.000-0.0310) H 09/06/18 15:52 Neutrophils % 66.0 % (42-75.0) 09/06/18 15:52 Lymphocytes % 21.9 % (20-51) 09/06/18 15:52 Monocytes % 9.7 % (0.0-9) H 09/06/18 15:52 Eosinophils % 1.3 % (0.0-3.0) 09/06/18 15:52 Basophils % 0.4 % (0.0-1.0) 09/06/18 15:52 Nucleated RBC % 0.0 k/mm3 (0-1) 09/06/18 15:52 Neutrophils # 4.6 K/mm3 (1.3-6.0) 09/06/18 15:52 Lymphocytes # 1.52 k/mm3 (1.5-3.5) 09/06/18 15:52 Monocytes # 0.7 k/mm3 (0.0-1.0) 09/06/18 15:52 Eosinophils # 0.1 k/mm3 (0.0-0.7) 09/06/18 15:52 Absolute Basophils 0.0 k/mm3 (0.0-0.1) 09/06/18 15:52 PT 35.4 Seconds (9.1-10.7) H 09/06/18 15:52 INR (Anticoag Therapy) 3.76 INR (0.92-1.08) H 09/06/18 15:52 PTT (Phil) 42.2 Seconds (24-32) H 09/06/18 15:52 D-Dimer 0.51 ug/mL (0.19-0.49) H 09/06/18 15:52 pCO2 32.3 mmHg (35.0-48.0) L 09/06/18 15:47 pO2 53.5 mmHg (83.0-108.0) L 09/06/18 15:47 HCO3 14.7 mmol/L (21.0-28.0) L 09/06/18 15:47 Total CO2 15.7 mmol/L (19.0-24.0) L 09/06/18 15:47 Base Excess -10.9 mmol/L (-2.0-3.0) L 09/06/18 15:47 ABG pH 7.28 (7.35-7.45) L 09/06/18 15:47 ABG O2 Sat (Measured) 84.0 % (94.0-98.0) L 09/06/18 15:47 Sodium 139 mmol/L (132-142) 09/06/18 15:52 Plasma Sodium 139 mmol/L (130-142) 09/06/18 15:52 Potassium 4.8 mmol/L (3.4-4.6) H 09/06/18 15:52 Chloride 103 mmol/L (97-106) 09/06/18 15:52 Carbon Dioxide 20.0 mmol/L (24-32.6) L 09/06/18 15:52 Anion Gap 20.8 mmol/L (6.8-13.8) H 09/06/18 15:52 BUN 13 mg/dL (6-23) 09/06/18 15:52 Creatinine 1.28 mg/dL (0.4-1.4) 09/06/18 15:52 Est GFR (Non-Af Amer) 59 mL/min (60-130) L 09/06/18 15:52 BUN/Creatinine Ratio 10.2 (9.0-21.6) 09/06/18 15:52 Random Glucose 119 mg/dL (70-110) H 09/06/18 15:52 Lactic Acid, Venous 7.9 mmol/L (0.4-2.0) H* 09/06/18 15:52 Calcium 8.4 mg/dL (7.9-10.9) 09/06/18 15:52 Calcium Adj for Albumin 8.7 mg/dL (8.4-10.2) 09/06/18 15:52 Magnesium 1.8 mg/dL (1.2-2.8) 09/06/18 15:52 Total Bilirubin 0.5 mg/dL (0.0-1.1) 09/06/18 15:52 AST 41 U/L (0-48) 09/06/18 15:52 ALT 12 U/L (19-67) L 09/06/18 15:52 Alkaline Phosphatase 117 U/L (50-170) 09/06/18 15:52 Troponin I Less than 0.017 ng/mL (0.00-0.10) 09/06/18 15:52 B-Natriuretic Peptide 1284 pg/mL (5-350) H 09/06/18 15:52 Total Protein 7.9 gm/dL (6.2-8.2) 09/06/18 15:52 Albumin 3.2 gm/dl (3.4-5.0) L 09/06/18 15:52 Assessment/Plan - Assessment/Plan (1) Lactic acidosis Assessment: Unknown source, and repeat pending. He does not have signs of infection, and does not appear septic. WBC not elevated at 6.9. I do not think his lactate would be elevated from hypoxia. His lactate could be due to alcohol. ETOH level pending, and repeat lactate level pending. He was given a bolus in the ED, and will repeat if his lactate is still high. Will trend lactates until it is less than 2.0. Problem: Acute (2) Syncope and collapse Assessment: Ddx includes infection, medication reaction, dysrhythmia, orthostasis, ETOH use. No signs of infection on exam. Will continue telemetry. Current heart rate around 100. ETOH level pending. He started medications for COPD, which are not traditionally meds that cause syncope. Will check orthostatic blood pressures. Problem: Acute (3) Afib Assessment: Continue metoprolol for rate control. His rate was in the 20's when he got to the ED, but decreased to around 100 after 500 cc bolus. He is prescribed coumadin, and his INR was high today. He took today's dose already, so will hold tomorrow's dose. Problem: Chronic Qualifiers: Atrial fibrillation type: chronic Qualified Code(s): I48.2 - Chronic atrial fibrillation (4) COPD (chronic obstructive pulmonary disease) Assessment: He reports having a new diagnosis of COPD, and was started on three inhaled medications, but he is unsure of their names. He is currently using 2.5 L O2 via NC, and will wean as able. Problem: Acute Qualifiers: COPD type: unspecified COPD Qualified Code(s): J44.9 - Chronic obstructive pulmonary disease, unspecified (5) Elevated INR Problem: Acute
[2018-09-06] MEDS: METOPROLOL TARTRATE 25 MG TABLET PO SCH (21:22)
[2018-09-07] MEDS: NORMAL SALINE 1,000 ML IV PRN (02:36)
[2018-09-07] MEDS ORDERED: PANTOPRAZOLE SODIUM 40 MG TABLET.EC PO SCH (07:00)
[2018-09-07 07:04] LABS: Prothrombin Time (Patient) 36.6 Seconds (9.1-10.7)
[2018-09-07 07:05] LABS: INR 3.9 INR (0.92-1.08)
[2018-09-07] MEDS: METOPROLOL TARTRATE 25 MG TABLET PO SCH (09:30)
--- NOTE | 2018-09-07 10:57 | DS ---
(1) Lactic acidosis Problem: Resolved (2) Syncope and collapse Problem: Resolved (3) Afib Problem: Chronic Qualifiers: Atrial fibrillation type: chronic Qualified Code(s): I48.2 - Chronic atrial fibrillation (4) COPD (chronic obstructive pulmonary disease) Problem: Chronic Qualifiers: COPD type: unspecified COPD Qualified Code(s): J44.9 - Chronic obstructive pulmonary disease, unspecified (5) Elevated INR Problem: Acute Description of Stay: Patient with past medical history of COPD, A. trip on Coumadin was at [facility] and passed out. Witnesses state he went down somewhat gently and did not hit his head. He reports having some shortness of breath with exertion lately, but no acute illnesses. Denies fevers. The only recent medication changes were 3 different inhalers for COPD. Denies chest pain, denies seizure history. He states he has been having some diarrhea about every other day. He states he had 2 or 3 alcoholic drinks earlier on the day of admission. Orthostatic vitals were normal. In the ER, he had some significant lab abnormalities, namely a lactate of 7.9. This resolved with IV fluids. Admission pH was 7.28, pO2 of 53 and pCO2 of 32. His blood pressure is not decreased, and the source of his lactate was unknown. No elevated WBC. No acute findings on head CT. He did have an anion gap of 20, so his syncopal episode may have been secondary to some dehydration. He just started 3 new medications for COPD. He had questions regarding if he should be seeing a graphite pan drier tender. Perhaps if those medications are not helpful, pulmonology consult would be appropriate. He used oxygen temporarily, and was weaned the morning after admission. His INR was elevated at 3.9. His Coumadin will be held on 09/07 and 09/08, and resume on 09/09. We will have him seen in the Coumadin clinic later this week. Procedures Performed: none Results and Findings: Lab Pending Results 09/06/18 15:47: pCO2 32.3 L, pO2 53.5 L, HCO3 14.7 L, Total CO2 15.7 L, Base Excess -10.9 L, ABG pH 7.28 L, ABG O2 Sat (Measured) 84.0 L 09/06/18 15:52: WBC 6.9, RBC 4.95, Hgb 12.0 L, Hct 42.6, MCV 86.1, MCH 24.2 L, MCHC 28.2 L, RDW 18.8 H, Plt Count 374, MPV 10.2, Immature Gran % (Auto) 0.70 H, Immature Gran # (Auto) 0.05 H, Neutrophils % 66.0, Lymphocytes % 21.9, Monocytes % 9.7 H, Eosinophils % 1.3, Basophils % 0.4, Nucleated RBC % 0.0, Neutrophils # 4.6, Lymphocytes # 1.52, Monocytes # 0.7, Eosinophils # 0.1, Absolute Basophils 0.0 09/06/18 15:52: PT 35.4 H, INR (Anticoag Therapy) 3.76 H, PTT (Phil) 42.2 H 09/06/18 15:52: Sodium 139, Plasma Sodium 139, Potassium 4.8 H, Chloride 103, Carbon Dioxide 20.0 L, Anion Gap 20.8 H, BUN 13, Creatinine 1.28, Est GFR (Non- Af Amer) 59 L, BUN/Creatinine Ratio 10.2, Random Glucose 119 H, Calcium 8.4, Calcium Adj for Albumin 8.7, Magnesium 1.8, Total Bilirubin 0.5, AST 41, ALT 12 L, Alkaline Phosphatase 117, Troponin I Less than 0.017, Total Protein 7.9, Albumin 3.2 L 09/06/18 15:52: D-Dimer 0.51 H 09/06/18 15:52: B-Natriuretic Peptide 1284 H 09/06/18 15:52: Lactic Acid, Venous 7.9 H* 09/06/18 19:20: Lactic Acid, Venous 3.4 H* 09/06/18 19:25: Ethyl Alcohol 49.0 H 09/06/18 21:45: Troponin I 0.059 09/06/18 21:45: Lactic Acid, Venous 2.9 H* 09/07/18 02:20: Lactic Acid, Venous 0.9 09/07/18 06:50: PT 36.6 H, INR (Anticoag Therapy) 3.90 H Discharge Location: Home Disposition: Home self-care Condition: Fair Discharge Activity: Activity as tolerated Discharge Diet: Resume usual diet Referrals: Aisha Carter, ACUTE DIALYSIS NURSE [Primary Care Provider] - One Week Additional Patient Instructions (free text): -Please make TCM appointment unless custodial discharge. Thank you! Andreea @ [phone]. Please schedule with the coumadin clinic later this week. Complete Home Medications List: Complete Home Medication List: Enalapril Maleate [Vasotec] 20 mg PO DAILY 02/10/15 Lovastatin 10 mg PO HS 02/10/15 Metoprolol Tartrate [Lopressor] 25 mg PO BID 02/10/15 Warfarin Sodium [Coumadin] 4 mg PO MO 02/10/15 Pantoprazole Sodium [Protonix] 40 mg PO DAILY@0700 #60 tablet. 06/08/18 warfarin 4 mg tablet 6 mg PO SUTUWETHFRSA tab 06/30/18 Loratadine 10 mg PO DAILY 08/19/18
[2018-09-07 15:45] VITALS: BP 123/65
[2018-09-07] MEDS ORDERED: WARFARIN SODIUM 1 TAB TAB PO SCH (17:00)
[2018-09-07] MEDS ORDERED: WARFARIN SODIUM 4 MG TABLET PO SCH (17:00)
[2018-09-08] MEDS ORDERED: WARFARIN SODIUM 4 MG TABLET PO SCH (17:00)
== END 2018-09-07 15:33 | disposition home or self-care (01) ==
LOC: ER 15:21 → MS 15:21
PROVIDERS: ADMIT Family Medicine; ATTEND Family Medicine
DX: Z79.01 Long term (current) use of anticoagulants; I48.2 Chronic atrial fibrillation; R55 Syncope and collapse; E87.2 Acidosis; J44.9 Chronic obstructive pulmonary disease, unspecified
CPT/HCPCS: 36415; 36600; 70450; 71010; 71045; 80053; 80320; 82803; 83519; 83605; 83735; 83880; 84484; 85025; 85379; 85610; 85730; 93005; 94640; 94664; 96360; 96361; 99285; G0378; G0481